=== PATIENT | female | born 1985 | race Caucasian/White ===

== ENCOUNTER 2016-05-04 10:44 | Emergency (ER) | payer BC ==
--- NOTE | 2016-05-04 11:49 | ER PHYSICIAN DOCUMENTATION ---
Physician Documentation [facility] Name:Fern Eason Age:30 yrs Sex:Female :1985 Arrival Date:05/04/2016 Time:10:44 Bed1 Private MD:Bev Barrett ED, Scott Disposition: 05/04/16 11:43 Discharged to Home/Self Care. Impression: Metatarsal Fracture. - Condition is Good. - Discharge Instructions: FRACTURE, Foot. - Medical Reconciliation form form. - Follow up: Almas Ellis DPM; When: 2 - 3 days; Reason: Continuance of care. - Problem is new. - Symptoms have improved. HPI: 05/04 11:43 This 30 yrs old Female presents to ER via Private Vehicle with complaints of sc Foot Injury - L. 11:43 The patient presents with an injury, pain, that is acute. The complaints affect the ar left foot. Context: The problem was sustained outdoors, resulted from stepping into truck had full weight on outside of foot and felt pain, Mechanism of Injury: na the patient can partially bear weight, must have assistance. Onset: The symptom(s)/episode began/occurred just prior to arrival. Associated signs and symptoms: The patient has no apparent associated signs or symptoms. plantar fasciitis. Historical: - Allergies: No known drug Allergies; - Home Meds: 1. Levothroid Oral 2. duloxetine oral 3. Insulin: Regular Sub-Q - PMHx: DIABETES - IDDM; planter facitis; gastric perisis; - Tetanus: < 10 years. - Ebola Screening: : Patient denies exposure to infectious person. Patient denies travel to an Ebola-affected area in the 21 days before illness onset. . - Social history: Smoking status: Patient states was never smoker of tobacco. Patient/guardian denies using alcohol, marijuana. ROS: 11:45 MS/extremity: Positive for pain. sc 11:45 Constitutional: Negative for fever, chills, and weight loss. sc Eyes: Negative for injury, pain, redness, and discharge. Neck: Negative for injury, pain, and swelling. Back: Negative for injury and pain. Skin: Negative for injury, rash, and discoloration. 11:45 Neuro: Negative for headache, weakness, numbness, tingling, and seizure. Exam: Constitutional: This is a well developed, well nourished patient who is awake, alert, and in no acute distress. Head/Face: Normocephalic, atraumatic. 11:45 Eyes: Pupils equal round and reactive to light, extra-ocular motions intact. Lids and sc lashes normal. Conjunctiva and sclera are non-icteric and not injected. Cornea within normal limits. Periorbital areas with no swelling, redness, or edema. 11:45 Musculoskeletal/extremity: Extremities: grossly normal except: noted in the lateral side of left foot: pain, ROM: intact in all extremities, Circulation is intact in all extremities. Sensation intact. Vital Signs: 10:58 BP 122 / 89; Pulse 84; Resp 16; Pulse Ox 96% on R/A; Pain 2/10; st MDM: 11:12 Patient medically screened. sc 11:46 Differential diagnosis: fracture, sprain. Data reviewed: vital signs, nurses notes, ar radiologic studies, plain films, and as a result, I will discharge patient. Counseling: I had a detailed discussion with the patient and/or guardian regarding: the historical points, exam findings, and any diagnostic results supporting the discharge/admit diagnosis, radiology results, the need for outpatient follow up, for a referral to a specialist. 05/04 10:54 Order name: Ice Packs; Complete Time: 10:54 05/04 11:34 Order name: ORTHO: Crutches & Training; Complete Time: 11:35 ar 05/04 11:34 Order name: ORTHO: Ice Pack; Complete Time: 11:35 ar 05/04 11:34 Order name: Walking Boot; Complete Time: 11:35 ar Dispensed Medications: No medications were administered Signatures: Teagan Falcon, RN Almas Rodriguez MD MD ar
--- NOTE | 2016-05-04 11:49 | ER NURSING DOCUMENTATION ---
Nurse's Notes [facility] Name:Fern Eason Age:30 yrs Sex:Female :1985 Arrival Date:05/04/2016 Time:10:44 Bed1 Private MD:Bev Barrett Diagnosis:Metatarsal Fracture Presentation: 05/04 10:54 Acuity: DESTINY 4 st 10:54 Presenting complaint: Patient states: pt tends to walk on the sides of her feet because st she has troubles with planter fascitis. today she stepped on the out side of her left foot and felt significant pain. pt is now unable to bear weight on that foot. Transition of care: Home. 10:54 Method Of Arrival: Private Vehicle st Triage Assessment: 10:57 General: Appears in no apparent distress, Behavior is cooperative. Pain: Complains of st pain in lateral side of left foot Pain currently is 2 out of 10 on a pain scale. At worst was 10 out of 10 on a pain scale. Pain began 2 hours ago Aggravated by weight bearing. Musculoskeletal: Circulation, motion, and sensation intact Swelling present in lateral side of left foot. Injury Description: Bruise sustained to lateral side of left foot. Historical: - Allergies: No known drug Allergies; - Home Meds: 1. Levothroid Oral 2. duloxetine oral 3. Insulin: Regular Sub-Q - PMHx: DIABETES - IDDM; planter facitis; gastric perisis; - Tetanus: < 10 years. - Ebola Screening: : Patient denies exposure to infectious person. Patient denies travel to an Ebola-affected area in the 21 days before illness onset. . - Social history: Smoking status: Patient states was never smoker of tobacco. Patient/guardian denies using alcohol, marijuana. Screenin:59 Infectious Disease Risk None. Abuse screen: Denies threats or abuse. Denies injuries st from another. pt feels safe at home. Nutritional screening: No deficits noted. Vital Signs: 10:58 BP 122 / 89; Pulse 84; Resp 16; Pulse Ox 96% on R/A; Pain 2/10; st ED Course: 10:47 Patient arrived in ED. ama 10:47 Bev Barrett MD is Private Physician. ama 10:54 Teagan Falcon RN is Primary Nurse. st 10:[address] 10:59 Valuables Remains with patient. Ice pack to injury. st 11:12 Port Xray Completed. pm1 11:12 Almas Barba MD is Attending Physician. md 11:30 Crutch training done. Walking boot applied. st 11:41 Almas Ellis DPM is Referral Physician. md Administered Medications: No medications were administered Outcome: 11:43 Discharge ordered by . md 11:48 Discharged to home ambulatory, with crutches. st 11:48 Condition: improved 11:48 Discharge instructions given to patient, Instructed on crutch walking, discharge instructions, follow up and referral plans. medication usage, [facility] 11:48 Patient [address] the ED[address] st Signatures: Teagan Falcon, RN RN Almas Hendrickson MD MD sc McBride, Philisha pm1 Andi Mckeon, Reg Reg ama
--- NOTE | 2016-05-07 14:59 | RADIOLOGY REPORT ---
Three views of the left foot demonstrates a transverse nondisplaced fracture involving the proximal diaphysis of the left fifth metatarsal. There is no interarticular involvement. No other abnormality is identified. The visualized joints appear unremarkable. IMPRESSION: Nondisplaced transverse fracture involving the proximal portion of the left fifth metatarsal. MTDD
== END 2016-05-04 11:49 | disposition home or self-care (01) ==
LOC: ER 10:44
DX: S92.355A Nondisplaced fracture of fifth metatarsal bone, left foot, initial encounter for closed fracture (principal); W18.49XA Other slipping, tripping and stumbling without falling, initial encounter; Y92.414 Local residential or business street as the place of occurrence of the external cause; Y93.01 Activity, walking, marching and hiking; M72.2 Plantar fascial fibromatosis; E10.43 Type 1 diabetes mellitus with diabetic autonomic (poly)neuropathy; Z79.899 Other long term (current) drug therapy
CPT/HCPCS: 99283